=== PATIENT | male | born 1975 | race Caucasian/White ===

== ENCOUNTER 2023-02-22 10:36 | Emergency (ER) | payer MEDICAID, OTHER ==
[~2023-02-22] VITALS: Ht 182.9 cm; Wt 127.0 kg
[2023-02-22 10:39] VITALS: BP 146/78
== END 2023-02-22 11:40 | disposition left against medical advice (07) ==
LOC: ER 11:23
DX: R45.851 Suicidal ideations (principal)
CPT/HCPCS: 99283